=== PATIENT | female | born 1945 | race Caucasian/White ===

== ENCOUNTER → 2018-06-19 16:00 | Outpatient (CLI) | payer MEDICARE ==
[2018-06-19 17:38] LABS: T4 THYROXINE 9.4 ug/dL (4.7-13.3); THYROID STIMULATING HORMONE 1.67 uIU/mL (0.36-3.74)
== END | disposition home or self-care (01) ==
LOC: D.LABREF 16:00
PROVIDERS: Internal Medicine Cardiovascular Disease
DX: R63.5 Abnormal weight gain (principal); E03.9 Hypothyroidism, unspecified

== ENCOUNTER 2020-02-11 11:50 | Outpatient (CLI) | payer MEDICARE ==
[~2020-02-11] VITALS: Ht 162.6 cm; Wt 64.5 kg
--- NOTE | ~2020-02-11 | HEMODYNAMI ---
PATIENT:HARPREET REESE MEDICAL RECORD: [id number] : 47 LOCATION:[facility] ADMISSION DATE: 02/11/20 Generatedon:02/11/202014:10 Patient name: HARPREET REESE Patient #: [id number] SSN: [id number] : 1945 Date of study: 02/11/2020 Page: Of Hemodynamic Procedure Report Patient Data Patient Demographics Procedure consent was obtained First Name: HARPREET Gender: Female Last Name: HUGH : 1945 Patient #: [id number] Age: 74 year(s) Race: SSN: [id number] Ethnicity: or Additional ID: [id number] Contact details [address]: [address] [place] [address] State: [place] City: [place] Zip code: [address] Past Medical History Allergies Allergen Reaction Date Comments Reported Other allergy 02/11/2020 ibuprofen Admission Admission Data Admission Date: 02/11/2020 Admission Time: 11:50 Arrival Date: 02/11/2020 Arrival Time: 0:00 Admit Source: Other Insurance Payor: Medicare Height (in.): 63.78 BSA: 1.69 (m2) Height (cm.): 162 BMI: 24.58 (kg/m2) Weight (lbs.): 142.2 Weight (kg.): 64.5 Lab Results Lab Result Date: 02/11/2020 Lab Result Time: 0:00 CBC Name Units Result Min Max Hemoglobin g/dl 13.1 -*(----)-- 13.5 17.5 Procedure Procedure Types Cath Procedure Diagnostic Procedure C [facility] w/Coronaries Sedation Charges Moderate Sedation up to 15 minutes Procedure Description Procedure Date Procedure Date: 02/11/2020 Procedure Start Time: 13:47 Procedure End Time: 14:08 Procedure Staff Name Function Gerald Pedro MD Performing Physician Becki Fabian RT Monitor Sofia Harrison RN Nurse Mary Reynolds RT Scrub Procedure Data Cath Procedure Fluoroscopy Diagnostic fluoroscopy Total fluoroscopy Time: 1.9 time: 1.9 min min Diagnostic fluoroscopy Total fluoroscopy dose: 531 dose: 531 mGy mGy Contrast Material Contrast Material Type Amount (ml) Isovue 300 57 Entry Location Entry Primary Successful Side Size Upsize Upsize Entry Closure Michael ccessful Closure Location (Fr) 1 (Fr) 2 (Fr) Remarks Device Remarks Radial Right 6 Fr Mechanical artery Short Compression Estimated blood loss: 5 ml Diagnostic catheters Device Type Used For End Catheter Placement DIAGNOSTIC [place] 110cm 5 Procedure Fr catheter ([id number]) Procedure Complications No complications Procedure Medications Medication Administration Route Dosage 0.9% NaCl I.V. 100 ml/hr Oxygen etCO2 Nasal cannula 2 l/min Lidocaine 2% added to field 20 Heparin Flush Bag added to field 2 bags (1000units/500ml NS) Radial Cocktail added to field 1 syringe (Verapamil 2mg/Nitro 400mcg/Heparin 1500units) Versed I.V. 1 mg Fentanyl I.V. 25 mcg Hemodynamics Rest BSA: 1.69 (m2) HGB: 13.1 (g/dl) O2 Consumption: Estimated: 138.21 (ml/min) O2 Co nsumption indexed: Estimated:81.78 (ml/min/m) Heart Rate: 44 (bpm) Pressure Samples Time Site Value (mmHg) Purpose Heart Use Rate(bpm) 13:52 LV 102/-5,6 Snapshot 53 Gradients Valve Time Site Site Mean SEP/DFP Peak To Heart Use 1 2 (mmHg) (sec/min) Peak Rate (mmHg) (bpm) Aortic 13:53 LV AO 66 Snapshots Pre Cath Intra NCS Post Cath Vital Signs Time Heart Resp SPO2 etCO2 NIBP Rhythm Pain Sedation Rate (ipm) (%) (mmHg) (mmHg) Status Level (bpm) 13:40:05 43 12 100 36.5 115/56(89) SB 0 (11) 10(A) , No pain 13:44:23 43 12 99 28.3 97/52(80) SB 0 (11) 10(A) , No pain 13:48:31 43 11 99 38 90/54(73) SB 0 (11) 10(A) , No pain 13:52:39 53 13 99 41 106/53(90) SB 0 (11) 10(A) , No pain 13:56:50 46 12 98 35.8 111/56(86) SB 0 (11) 10(A) , No pain 14:01:05 48 6 100 40.3 126/57(98) SB 0 (11) 10(A) , No pain 14:05:23 44 15 100 14.9 129/61(80) SB 0 (11) 10(A) , No pain Medications Time Medication Route Dose Verified Delivered Reason Notes E ffectiveness by by 13:34:22 0.9% NaCl I.V. 100 Gerald Sofia used for ml/hr Willis Harrison senior actuarial analyst 13:34:29 Oxygen etCO2 2 l/min Gerald Sofia used for Nasal Willis Harrison procedure cannula RN 13:34:34 Lidocaine 2% added 20ml Greald Gerald for local to vial Willis Pedro MD anesthetic field 13:34:38 Heparin Flush added 2 bags Gerald Gerald used for Bag to Willis Pedro MD procedure (1000units/500ml field NS) 13:34:43 Radial Cocktail added 1 Gerald Gerald used for (Verapamil to syringe Willis Pedro MD procedure 2mg/Nitro field 400mcg/Heparin 1500units) 13:47:00 Fentanyl I.V. 25 mcg Gerald Sofia for Willis Harrison sedation RN 13:47:50 Versed I.V. 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 13:25:40 Becki Fabian RT(R) (CV) sent for patient. Start room use. 13:25:42 Time tracking: Regular hours (M-F 7:00 - 5:00) 13:25:48 Plan of Care:Hemodynamics will remain stable., Cardiac rhythm will remain stable., Comfort level will be maintained., Respiratory function will remain adequate., Patient/ family verbilizes understanding of procedure., Procedure tolerated without complication., Recovers from procedure without complications.. 13:25:53 Patient received from Pre/Post Procedure Room to CCL 1 Alert and oriented. Tansferred to table in Supine position. 13:25:55 Warm blankets applied, and naomi hugger turned on for patient comfort. 13:25:56 Correct patient and procedure confirmed by team. 13:25:57 ECG and BP/O2 sat monitors applied to patient. 13:26:14 H&P Date Dictated: 02/06/2020 Within 30 days and on chart., H&P Addendum completed by physician on day of procedure. (MUST COMPLETE FOR ALL OUTPATIENTS). 13:26:20 Family in patients room. 13:26:22 Patient NPO since Midnight. 13:26:36 Patient allergic to Other allergyibuprofen 13:26:39 Is the patient allergic to Iodine/contrast media? No. 13:26:41 Was the patient premedicated? Yes 13:26:47 Is patient on blood thinner?No 13:26:49 Patient diabetic? Yes. 13:26:51 If diabetic: On Metformin? Yes 13:26:59 If on Metformin: Last Dose? 02/08/2020 13:27:09 Previous problem with sedation/anesthesia? Yes bradycardia 13:27:12 Snore? Yes 13:27:13 Sleep apnea? No 13:27:18 Dentures? No ? 13:27:24 Patient pain scale 0/10 ?. 13:27:29 Lab results completed and on chart. 13:28:11 Stress Test: no; N/A ? 13:28:16 Right Radial & Right Groin area was prepped with chlora-prep and draped in sterile fashion 13:28:17 Alarms reviewed by R. N. 13:28:18 Sharps counted by scrub and verified by R.N. 13:28:19 Physician paged 13:34:06 Informed consent obtained and on chart 13:34:22 0.9% NaCl 100 ml/hr I.V. was administered by Sofia Harrison RN; used for procedure; Verbal order read back and verified. 13:34:29 Oxygen 2 l/min etCO2 Nasal cannula was administered by Sofia Harrison RN; used for procedure; Verbal order read back and verified. 13:34:34 Lidocaine 2% 20ml vial added to field was administered by Gerald Pedro MD; for local anesthetic; Verbal order read back and verified. 13:34:38 Heparin Flush Bag (1000units/500ml NS) 2 bags added to field was administered by Gerald Pedro MD; used for procedure; Verbal order read back and verified. 13:34:43 Radial Cocktail (Verapamil 2mg/Nitro 400mcg/Heparin 1500units) 1 syringe added to field was administered by Gerald Pedro MD; used for procedure; Verbal order read back and verified. 13:38:58 Vital chart was started 13:41:33 Zero performed for pressure channel P1 13:46:13 Physician arrived 13:46:14 --------ALL STOP TIME OUT------ 13:46:14 Final Timeout: patient, procedure, and site verified with staff and physician. All members of the team are in agreement. 13:46:17 Right Radial & Right Groin site verified by team. 13:46:26 Fire Safety Assessment: A--An alcohol-based skin anteseptic being used preoperatively., C--Open oxygen or nitrous oxide is being used., D--An ESU, laser, or fiber-optic light is being used. 13:46:30 Physical assessment completed. ASA score P 2 - A patient with mild systemic disease as per Gerald Pedor MD. 13:46:40 3b) 30-44 Moderately reduced kidney function. 13:46:46 Maximum allowable contrast dose (3.7 X eGFR X 0.75)116 ml. 13:46:51 Sedation plan: IV Moderate Sedation Medication:Versed, Fentanyl 13:46:55 Use device set Radial Dx or PCI 13:46:57 ACIST Syringe (27052) opened to sterile field. 13:46:58 Medline Cath Pack ([id number]) opened to sterile field. 13:46:58 Bag Decanter (2002) opened to sterile field. 13:46:59 ACIST Hand Control (24533) opened to sterile field. 13:47:00 Fentanyl 25 mcg I.V. was administered by Sofia Harrison RN; for sedation; Verbal order read back and verified. 13:47:00 ACIST Manifold (71015) opened to sterile field. 13:47:01 MBrace Wrist Support ([id number]) opened to sterile field. 13:47:02 NEEDLE Cook 21G 4cm Radial (K58652) opened to sterile field. 13:47:04 EMERALD Guide Wire (502-835) opened to sterile field. 13:47:04 SHEATH 6FR RAIN (8317021) opened to sterile field. 13:47:10 Procedure started. 13:47:11 Full Disclosure recording started 13:47:17 Local anesthetic to right radial artery with Lidocaine 2% by Gerald Pedro MD.INITIAL ACCESS ONLY 13:47:50 Versed 1 mg I.V. was administered by Sofia Harrison RN; for sedation; Verbal order read back and verified. 13:48:18 Baseline sample Acquired. 13:48:25 Rhythm: sinus rhythm 13:48:32 Pre-procedure instructions explained to patient. 13:48:32 Pre-op teaching completed and patient verbalized understanding. 13:48:41 Opens mouth fully? Yes 13:48:43 Sticks out tongue? Yes 13:48:49 Airway obstruction? No ? 13:48:58 Pre procedure: right dorsailis pedis pulse 2+ Normal; easily identifiable; not easily obliterated 13:49:16 IV patent on arrival in right antecubital with 0.9% NaCl at [facility]. 13:51:50 Risk of Mortality: 0.1 13:51:54 Risk of blood transfusion: 1.3 13:51:59 Risk of NINO: 0.3 13:52:16 A 6 Fr Short sheath was inserted into the Right Radial artery 13:52:24 A DIAGNOSTIC [place] 110cm 5 Fr catheter (015471) was advanced over the wire and used for Procedure. 13:52:32 LV gram done using SCHMID 13:52:38 Injector settings: Ml/sec: 5, Volume: 15, 13:53:16 EF : 60 % 13:53:36 LV hemodynamics recorded. 13:54:07 LCA angiography performed. 13:54:12 Injector settings: Ml/sec: 3, Volume: 6, 13:57:01 RCA angiography performed. 13:57:06 Injector settings: Ml/sec: 3, Volume: 6, 13:59:52 Catheter removed. 14:00:31 ZEPHYR REGULAR TR BAND (832222) opened to sterile field. 14:00:51 Sheath removed intact; hemostasis achieved with Mechanical Compression to the Right Radial artery. 14:01:45 Fluoroscopy time 01.90 minutes. 14:02:02 Flurop Dose total: 531 14:02:02 Fluoroscopy dose: 531 mGy 14:02:12 Dose Area Product 38143 mGy/cm. 14:02:19 Sharps counted by scrub and verified by R.N. 14:02:28 Post-procedure physical assessment completed. ASA score P 2 - A patient with mild systemic disease as per Gerald Pedro MD. 14:02:50 Post procedure rhythm: sinus bradycardia 14:03:42 Contrast amount:Isovue 300 57ml. 14:03:48 Procedure ended.(Physican Out) 14:03:55 Maximum allowable dose exceeded? No. 14:03:58 Quinter band inflated with 10cc of air. 14:04:06 Post right radial artery:stable 14:04:10 Estimated blood loss: 5 ml 14:04:12 Post procedure instruction explained to patient.Patient verbalizes understanding. 14:04:14 Patient needs reinforcement of post procedure teaching. 14:04:35 Procedure type changed to Cath procedure, Diagnostic procedure, C, [facility] w/Coronaries, Sedation Charges, Moderate Sedation up to 15 minutes 14:04:38 Procedure and supply charges have been captured, reviewed, submitted and are correct. 14:04:46 Procedure Complication : No complications 14:04:51 Vital chart was stopped 14:05:01 [facility] Findings: MVD- MD will discuss options w/ pt 14:05:05 Operative report dictated upon procedure completion. 14:05:06 See physician's report for complete and final results. 14:05:10 Report given to Pre/Post Procedure Room. 14:05:14 Patient transfered to Pre/Post Procedure Room with Stretcher. 14:08:44 Procedure ended. 14:08:44 Full Disclosure recording stopped 14:08:47 End room use (Document Last) Device Usage Item Name Manufacture Quantity Catalog Hospital Part Current Minima l Lot# / Number Charge Number Stock Stock Serial# Code ACIST Acist 1 52739 [id number] [id number] [id number] 20 Syringe Medical (24686) Systems Inc Medline Medline 1 [id number] 139796 41498 099930 5 Cath Pack ([id number]) Bag Microtek 1 237045 16407 767069 5 Decanter Medical Inc. () ACIST Hand Acist 1 54811 718076 415537 693566 5 Control Medical (74170) Systems Inc ACIST Acist 1 85334 079943 340374 109321 5 Manifold Medical (45051) Systems Inc MBrace Advanced 1 140-0250-00 988998 89096 701625 5 Wrist Vascular Support Dynamics ([id number]) NEEDLE [employer] Medical 1 [id number] 338603 862855 268656 5 21G 4cm Radial ([id number]) EMERALD Cardinal 1 502-699 074262 484787 079195 5 Guide Wire Health (986-584) SHEATH 6FR Cardinal 1 [id number] 777693 9358547 744404 5 [facility] (8726018) DIAGNOSTIC Terumo 1 40-9748 434245 783780 788788 5 [place] 110cm 5 Fr catheter (651238) ZEPHYR Cardinal 1 181515 052900 9051382 279988 5 REGULAR TR Health BAND (367168) Signature Audit Surprise Stage Time Signature Unsigned Intra-Procedure 02/11/2020 Becki 2:09:08 PM Rui RT(R) (CV) Intra-Procedure 02/11/2020 Sofia Harrison 2:09:38 PM RN Intra-Procedure 02/11/2020 Gerald Pedro MD 2:10:13 PM [facility] [address] [place] [address]
[2020-02-11] MEDS ORDERED: BAYER CHEWABLE81 MG PO (12:18)
[2020-02-11] MEDS ORDERED: ISOSORBIDE MONO60 M1 PO (12:18)
[2020-02-11] MEDS ORDERED: FUROSEMIDE20 MG PO (12:19)
[2020-02-11] MEDS ORDERED: OMEPRAZOLE20 M1 PO (12:19)
[2020-02-11] MEDS ORDERED: LIPITOR40 MG PO (12:19)
[2020-02-11] MEDS ORDERED: SYNTHROID75 MCG PO (12:19)
[2020-02-11] MEDS ORDERED: METOPROLOL TART50 MG PO (12:20)
[2020-02-11] MEDS ORDERED: PRINIVIL20 MG PO (12:20)
[2020-02-11] MEDS ORDERED: RANEXA500 MG PO (12:20)
[2020-02-11] MEDS ORDERED: NITROQUICK0.4 MG SL (12:21)
[2020-02-11] MEDS ORDERED: GLUCOPHAGE1000 MG PO (12:21)
[2020-02-11] MEDS ORDERED: ESTRACE 0.0142.5 GM VG (12:22)
[2020-02-11 12:29] VITALS: BP 128/64; Ht 162.6 cm; Wt 64.5 kg
[2020-02-11 12:58] LABS: BASOPHILS 0.6 % (0-2); EOSINOPHILS 0.8 % (0-7); HEMATOCRIT 41.7 % (36.0-48.0); HEMOGLOBIN 13.1 g/dL (12-16); IMMATURE GRANULOCYTES 0.2 % (0-5); LYMPHOCYTES 31.3 % (15-50); MCH 27.5 pg (26.0-34.0); MCHC 31.4 g/dL (31.0-37.0); MCV 87.4 fL (80.0-100.0); MEAN PLATELET VOLUME 11.4 fL (7.4-10.4); MONOCYTES 8.8 % (2-11); NEUTROPHILS 58.3 % (40-80); PLATELET COUNT 359 10x3/uL (130-400); RBC 4.77 10x6/uL (4.00-5.40); RDW 15.1 % (11.5-14.5); WBC 6.4 10x3/uL (4.8-10.8)
[2020-02-11 13:28] LABS: CALCIUM 9.5 mg/dL (8.5-10.1); CHOL - HDL RATIO 2.5 ratio (2.3-4.1); CREATININE - SERUM 1.3 mg/dL (0.6-1.3); LDL-HDL RATIO 1.2 ratio (1.5-3.5)
[2020-02-11 13:54] LABS: ANION GAP 10.3 mmol/L (8-16); POTASSIUM - SERUM 4.3 mmol/L (3.5-5.1)
--- NOTE | 2020-02-11 14:15 | NUR ---
PT REC'D TO ROOM 3 VIA STRETCHER FROM MANAGER TESTING. MONITORS ESTAB. AT BS. SEE THREAD PULLER - ALARMS ON AND C/L IN REACH.
--- NOTE | 2020-02-11 14:17 | NUR ---
DR. BROWN AT FOR CONSULT.
--- NOTE | 2020-02-11 14:30 | NUR ---
R WRIST Z BAND SITE C/D/I, NO S/S BLEEDING OR HEMATOMA. R ARM/HAND WARM WITH PALP PULSES AND BRISK CAP REFILL. CM - SB, VSS. ALARMS ON AND C/L IN REACH.
--- NOTE | 2020-02-11 14:50 | NUR ---
DR. GUERRA, ANESTHESIA, IN TO SEE PT.
--- NOTE | 2020-02-11 15:00 | NUR ---
R WRIST SITE C/D/I, NO S/S BLEEDING OR HEMATOMA. VSS. PT RESTING QUIETLY. R HAND WARM, PULSES PALP. ALARMS ON AND C/L IN REACH.
--- NOTE | 2020-02-11 15:15 | NUR ---
2CC AIR REMOVED FROM Z BAND, NO S/S BLEEDING OR HEMATOMA. PT ALERT - INSTRUCTED ON S/S TO REPORT. AT BS. ALARMS ON AND C/L IN REACH.
--- NOTE | 2020-02-11 15:24 | NUR ---
U/S TECH AT FOR CAROTID DOPPLERS.
--- NOTE | 2020-02-11 15:30 | NUR ---
TOTAL 5CC AIR REMOVED FROM Z BAND, NO S/S BLEEDING OR SWELLING. VSS. PT DENIES NEEDS. ALARMS ON AND C/L IN REACH. DOPPLER U/S IN PROCESS.
--- NOTE | 2020-02-11 15:45 | NUR ---
ALL AIR REMOVED FROM Z BAND, NO S/S BLEEDING OR HEMATOMA. HAND WARM WITH PULSES PALP. U/S STILL IN PROCESS. ALARMS ON AND C/L IN REACH.
--- NOTE | 2020-02-11 16:15 | NUR ---
Z BAND OFF, NO S/S BLEEDING - DSG APPLIED.. VSS. U/S IN PROCESS. PT RESTING QUIETLY, DENIES NEEDS.
--- NOTE | 2020-02-11 16:30 | NUR ---
U/S DONE. PIV D/C'D INTACT, DSG APPLIED.
--- NOTE | 2020-02-11 16:39 | NUR ---
ALL DISCHARGE INSTRUCTIONS REVIEWED WITH PT. INCLUDING MEDICATIONS (STOP LISINOPRIL 02/12 - PER DR BROWN), RESTRICTIONS AND PLAN FOR SURGERY MON.
--- NOTE | 2020-02-11 16:43 | NUR ---
EKG DONE PER PRE OP SURGERY ORDERS.
--- NOTE | 2020-02-11 16:46 | NUR ---
PT TO XRAY VIA WC.
--- NOTE | 2020-02-11 16:56 | NUR ---
PT BACK TO UNIT, TO BR AND DRESSED INDEPENDENTLY.
--- NOTE | 2020-02-11 17:00 | NUR ---
PT D/C'D VIA WC TO PRIVATE VEHICLE WITH ALL PAPER WORK AND BELONGINGS.
== END 2020-02-11 17:00 | disposition home or self-care (01) ==
LOC: D.CATH 11:50
PROVIDERS: ATTEND Internal Medicine Cardiovascular Disease
DX: I25.110 Atherosclerotic heart disease of native coronary artery with unstable angina pectoris (principal)

== ENCOUNTER 2020-02-12 15:34 | Inpatient (IN) | payer MEDICARE ==
[~2020-02-12] VITALS: Ht 162.6 cm; Wt 72.1 kg
[~2020-02-12 15:34] MED LIST: BAYER CHEWABLE81 MG PO; ESTRACE 0.0142.5 GM VG; FUROSEMIDE20 MG PO; GLUCOPHAGE1000 MG PO; ISOSORBIDE MONO60 M1 PO; LIPITOR40 MG PO; METOPROLOL TART50 MG PO; NITROQUICK0.4 MG SL; OMEPRAZOLE20 M1 PO; PRINIVIL20 MG PO; RANEXA500 MG PO; SYNTHROID75 MCG PO
[2020-02-13 08:34] LABS: APTT 23.1 SECONDS (22.8-39.4); INR 0.97 (0.85-1.17); PROTIME 12.8 SECONDS (11.6-15.0)
[2020-02-13 08:41] LABS: BILIRUBIN NEGATIVE (NEGATIVE); GLUCOSE NEGATIVE (NEGATIVE); KETONE NEGATIVE (NEGATIVE); NITRITE NEGATIVE (NEGATIVE); UROBILINOGEN NORMAL (NORMAL)
[2020-02-13 08:46] LABS: BACTERIA FEW /hpf (NEGATIVE); EPITHELIAL CELLS 0-5 /hpf (0-5); HYALINE CAST 0-5 /lpf (NONE SEEN); RED CELLS - URINE RARE /hpf (0-5)
[2020-02-13 08:49] LABS: PHOSPHOROUS 3.9 mg/dL (2.5-4.9); T4 THYROXIN - FREE 1.44 ng/dL (0.76-1.46); THYROID STIMULATING HORMONE 2.41 uIU/mL (0.36-3.74); URIC ACID 5.6 mg/dL (2.6-7.2)
[2020-02-16] VITALS (51 sets, daily range): BP systolic 108–166; BP diastolic 38–81; BMI 23.9; BMI 25.4
--- NOTE | 2020-02-16 06:32 | NUR ---
0630-OR [employer] ARCHITECT TO NOTIFY DR. BROWN OF VARIANCE IN SYSTOLIC BLOOD PRESSURE.
[2020-02-16 12:35] LABS: BASOPHILS 0.2 % (0-2); EOSINOPHILS 0.6 % (0-7); HEMATOCRIT 23.4 % (36.0-48.0); IMMATURE GRANULOCYTES 0.2 % (0-5); LYMPHOCYTES 24.7 % (15-50); MCHC 31.6 g/dL (31.0-37.0); MCV 85.4 fL (80.0-100.0); MEAN PLATELET VOLUME 10.4 fL (7.4-10.4); MONOCYTES 5.1 % (2-11); NEUTROPHILS 69.2 % (40-80); RBC 2.74 10x6/uL (4.00-5.40); RDW 15.1 % (11.5-14.5); WBC 6.5 10x3/uL (4.8-10.8)
[2020-02-16 12:38] LABS: HEMOGLOBIN 7.4 g/dL (12-16); PLATELET COUNT 188 10x3/uL (130-400)
[2020-02-16 12:45] LABS: APTT 31.2 SECONDS (22.8-39.4); INR 1.59 (0.85-1.17); PROTIME 18.8 SECONDS (11.6-15.0)
--- NOTE | 2020-02-16 13:40 | NUR ---
PT ARRIVED TO UNIT AROUND 1333 VIA BED. ON VENT ETT 7.5 23 AT LIP. HAS RIJ WITH PLASMOLYTE AT 100ML/HR. MIDSTERNAL INCISION WITH DRESSING C/D/I. SUBSTERNAL DRESSING IN PLACE. CT X 2 Y'D TOGETHER. NO AIR LEAK NOTED. TO 20 CM SUCTION. MUNA DRAIN IN PLACE. SANDRA LE HARVEST. BERNA DRAIN TO LLE. RIGHT RADIAL BHAVANA IN PLACE. SAWYER CATHETER IN PLACE WITH CLEAR YELLOW URINE. WRIST RESTRAINTS APPLIED UPON ARRIVAL. TPM R-80 AMA 20 SENSITIVY 0.5. SAFETY MEASURES IN PLACE. NURSE AT BEDSIDE FOR CLOSE MONITORING. WILL CONTINUE TO MONITOR.
--- NOTE | 2020-02-16 16:15 | NUR ---
PT RESTING COMFORTABLY. OPENING EYES AND FOLLOWING SIMPLE COMMANDS. ON CPAP TRIAL AT THIS TIME. WILL CONTINUE TO MONITOR CLOSELY.
--- NOTE | 2020-02-16 16:45 | NUR ---
ABG RESULTS REPORTED TO DR. BROWN. HEATHER TO EXTUBATE.
--- NOTE | 2020-02-16 16:52 | NUR ---
PT EXTUBATED AT THIS TIME. PLACED ON 4L O2 VIA NC. SPOUSE AT BEDSIDE. WRIST RESTRAINTS DC'D. WILL CONTINUE TO MONITOR.
[2020-02-16 17:08] LABS: INR 1.19 (0.85-1.17)
--- NOTE | 2020-02-16 18:30 | NUR ---
O2 SAT 100% ON 3L. DECREASED OXYGEN TO 2L VIA NC. PULLED UP AND REPOSITIONED FOR COMFORT.
[2020-02-17] VITALS (67 sets, daily range): BP systolic 104–159; BP diastolic 43–68; Ht 162.6 cm; Wt 72.1 kg
--- NOTE | 2020-02-17 04:30 | NUR ---
PT DANGLED ON SIDE OF BED, TOLERATED WELL. 20ML DRAINAGED NOTED TO CHEST TUBES. PT BACK IN BED. WILL CONTINUE TO OBSERVE.
[2020-02-17 05:58] LABS: HEMOGLOBIN 8.8 g/dL (12-16); MCHC 31.3 g/dL (31.0-37.0); MCV 86.2 fL (80.0-100.0); MEAN PLATELET VOLUME 10.7 fL (7.4-10.4); RBC 3.26 10x6/uL (4.00-5.40); RDW 15.4 % (11.5-14.5)
[2020-02-17 06:15] LABS: ALBUMIN 2.9 g/dL (3.4-5.0); ANION GAP 12.5 mmol/L (8-16); BILIRUBIN - TOTAL 0.27 mg/dL (0.2-1.3); CALCIUM 7.1 mg/dL (8.5-10.1); CARBON DIOXIDE 24.9 mmol/L (21.0-32.0); CREATININE - SERUM 1.1 mg/dL (0.6-1.3); POTASSIUM - SERUM 3.4 mmol/L (3.5-5.1); PROTEIN - SERUM 5.3 g/dL (6.4-8.2)
[2020-02-17 06:29] LABS: HEMATOCRIT 28.1 % (36.0-48.0); WBC 8.7 10x3/uL (4.8-10.8)
--- NOTE | 2020-02-17 07:51 | NUR ---
PT BEGAN HAVING TREMOR LIKE SHAKING TO CHEST SHOULDER SHORTLY AFTER START OF CLEVIPREX, TITRATED TO 3MG/HR. MEDICATION TITRATED DOWN, BLOOD SUGAR CHECKED AND 176. TEMPERATURE 99.5 SAWYER. SHAKING CONTINUE OFF AND ON FOR 20 MIN. PT NOT IN DISTRESS AND ABLE TO SLEEP. DR. BROWN AWARE. B/P BEGAN TO REDUCE AFTER AND BEGAN TITRATEING DOWN NITRO.
--- NOTE | 2020-02-17 07:54 | NUR ---
RIGHT JÚNIOR BATEMAN DC'Fernando PER ORDER.
--- NOTE | 2020-02-17 07:57 | OP ---
PATIENT NAME: HARPREET REESE MEDICAL RECORD: [id number] :47 LOCATION:D.[facility] D.CV02 ADMISSION DATE:02/16/20 SURGEON: FRANKO BROWN MD DATE OF OPERATION: 02/16/2020 SURGEON: Franko Brown MD PROCEDURE PERFORMED: Coronary artery bypass graft times 3 (left internal mammary artery to LAD, reverse saphenous vein graft from aorta to first obtuse marginal, aorta to posterior descending artery). PREOPERATIVE DIAGNOSES: Coronary artery disease with history of multiple stents, unstable angina symptoms. POSTOPERATIVE DIAGNOSES: Coronary artery disease with history of multiple stents, unstable angina symptoms. ANESTHESIA: General endotracheal anesthesia. ESTIMATED BLOOD LOSS: Total cardiopulmonary bypass with Cell Saver retransfusion. COMPLICATIONS: None. SPECIMENS: None. CONDITION: Stable. DISPOSITION: To CV ICU. OPERATIVE FINDINGS: 1. Right greater than left brachial blood pressure about 20 mm, but good flow in the left internal mammary artery. 2. Trace mitral regurgitation by transesophageal echocardiography unchanged after coronary artery bypass graft, normal left ventricular size with good contractility. 3. Thin walled greater saphenous vein from the right leg with multiple thin spots except for 2 inches of vein at the upper thigh where it essentially trifurcated, this was not usable for bypass. 4. Bridging greater saphenous vein harvest from the left thigh to mid thigh where again the vein trifurcated relatively thin walled segment in the proximal portion of the obtuse marginal graft. 5. Good quality left internal mammary artery, the LAD was 1.75 mm vessel with diffuse disease. Good Doppler signal after anastomosis and after reversal of heparin. 6. First obtuse marginal was a largest vessel in the lateral wall. It was severely calcified up to the intramyocardial portion where it was a 2.5 mm vessel. The more distal obtuse marginal was small. 7. Posterior descending artery 1.5 mm. 8. Second diagonal calcified 4-5 inches beyond the bifurcation from the LAD and not amenable for bypass. OPERATIVE INDICATION: Unstable angina, history of coronary stents with restenosis and progressive coronary artery disease, 3 vessels. OPERATIVE REPORT [id number] HARPREET REESE OPERATIVE PROCEDURE IN DETAIL: The patient was brought to the operating suite. General anesthesia was obtained, the patient was prepped and draped. Greater saphenous vein was harvested from right leg utilizing endoscopic technique. Side branch divided with electrocautery. Vessel was ligated proximally and distally and removed, thin sites were oversewn. The vein was small and thin walled. Bridging incision made in the left leg. Side branches divided with clips. Vessel ligated proximally and distally and removed and made ready for anastomosis by oversewing the thin sites. Leg was closed after drain placement in 2 layers and Dermabond was placed. Median sternotomy incision was made. Subcutaneous tissue divided with electrocautery. Sternum was divided with a saw. The left hemisternum was elevated. Left pleural cavity was entered. Left internal mammary and veins were taken down as a pedicle graft. Sternal retractor was placed. Pericardium was opened. Heparin was given. Aorta was cannulated. Dual stage venous cannula was inserted. The internal mammary was clipped distally and the flow was excellent. It was made ready for anastomosis. Activated clotting time was appropriately elevated. The patient was placed on cardiopulmonary bypass. Sites for distal anastomoses were selected. Antegrade cardioplegic cannula was inserted. The patient's temperature had drifted downward. Crossclamp was placed. Cardioplegia given antegrade and this was repeated at 20-minute intervals including down the completed vein grafts. Distal anastomosis was performed in standard technique. Proximal anastomosis 7-0 thin walled, obtuse marginal 6-0 in the right, also a 3.5 punch on the obtuse marginal graft. Root de-aired, anastomosis tied down. Flow restored, proximal and distal anastomotic sites inspected for bleeding. The patient resumed spontaneous rhythm. Atrial and ventricular pacing wires were placed. Atrial pacing was performed due to preoperative bradycardia. The patient was decannulated. Protamine was given. The graft lay appropriately. Thorough irrigation was undertaken. Hemostasis was assured. A drain was placed in the mediastinum and left pleural cavity. Pericardium was loosely reapproximated over the great vessels. Left chest was evacuated and irrigated. The internal mammary harvest site inspected for bleeding. The patient had moderate osteopenia, so a weave wire was used bilaterally with stable chest closure. Fascia was closed. Subcutaneous tissue was closed. Skin was closed. Dermabond was placed. The needle and sponge counts were reported as correct and the patient was taken to the ICU in stable condition. TRANSINT:[id number] Voice Confirmation ID: [id number] DOCUMENT ID: [id number] FRANKO BROWN MD at 0757 CC: HEIDE JIMÉNEZ M.D. and MEKHI GAGNON [id number] DICTATION DATE: 02/16/20 1508 PLATE FITTER: 02/16/20 2339 ADM IN [place] [id number] [place] [id number]
--- NOTE | 2020-02-17 09:10 | NUR ---
SUBSTERNAL DRESSING CHANGED PER ORDER. TPM WIRES COILED AND SECURED. PLASMOLYTE DC'D PER ORDERS. WILL CONTINUE TO MONITOR.
--- NOTE | 2020-02-17 15:17 | NUR ---
STOOD UP ON SIDE OF CHAIR WITH PHYSICAL THERAPY. RATES PAIN 8/10 AT INCISION SITE. PERCOCET GIVEN FOR PAIN. NO FURTHER NEEDS AT THIS TIME. WILL CONTINUE TO MONITOR.
--- NOTE | 2020-02-17 16:14 | NUR ---
RESTING IN CHAIR. SPOUSE AT BEDSIDE. RATES PAIN 7/10 BREAK THROUGH PAIN AT INCISION SITE. NO FURTHER NEEDS AT THIS TIME.
--- NOTE | 2020-02-17 20:00 | NUR ---
BERNA DRAIN D/C'D FROM LEFT LEG, PT TOLERATED WELL, NO C/O
--- NOTE | 2020-02-17 21:30 | NUR ---
PT RETURNED TO BED, STOOD AND TRANSFERRED WELL WITH MINIMAL ASSIST, VITALS STABLE
[2020-02-18] VITALS (24 sets, daily range): BP systolic 92–122; BP diastolic 41–56
--- NOTE | 2020-02-18 | NUR ---
PT SLEEPING WITH NO DISTRESS, VITALS STABLE
[2020-02-18 06:14] LABS: ALBUMIN 2.6 g/dL (3.4-5.0); ANION GAP 10.7 mmol/L (8-16); BILIRUBIN - TOTAL 0.24 mg/dL (0.2-1.3); CALCIUM 7.6 mg/dL (8.5-10.1); CARBON DIOXIDE 26.9 mmol/L (21.0-32.0); CREATININE - SERUM 0.9 mg/dL (0.6-1.3); POTASSIUM - SERUM 3.6 mmol/L (3.5-5.1); PROTEIN - SERUM 5.3 g/dL (6.4-8.2)
[2020-02-18 06:24] LABS: HEMATOCRIT 24.4 % (36.0-48.0); HEMOGLOBIN 7.7 g/dL (12-16); MCH 27.1 pg (26.0-34.0); MCHC 31.6 g/dL (31.0-37.0); MCV 85.9 fL (80.0-100.0); MEAN PLATELET VOLUME 10.8 fL (7.4-10.4); RBC 2.84 10x6/uL (4.00-5.40); RDW 15.9 % (11.5-14.5); WBC 10.5 10x3/uL (4.8-10.8)
--- NOTE | 2020-02-18 08:00 | NUR ---
DR BROWN IN THE UNIT. DR BROWN PULLED CT'S. MUNA DRAIN REMAINS. DRESSING CHANGED COMPLETED. SITE LOOKS C/D/I. PT TOLERATED WELL.
--- NOTE | 2020-02-18 08:55 | NUR ---
AM MEDS GIVEN WITH NO ISSUES. PT PULLING ABOUT 500 ON HER IS. INSTRUCTED TO SPLINT CHEST WITH HEART PILLOW AND TO COUGH. WEAK COUGH NOTED. INSTRUCTED TO TCDB AND TO USE IS 10X'S/H. VSS AT THIS TIME. CALL LIGHT IN REACH. WILL CONT POC.
--- NOTE | 2020-02-18 09:43 | NUR ---
PT WORKING WITH PHYSICAL THERAPY. SEE PT NOTES. VSS. WILL CONT POC.
--- NOTE | 2020-02-18 10:33 | NUR ---
Nutrition Follow-up: POD 2 CABG. Working with PT this AM. Diet: Diabetic PO intake: 0% breakfast, 30% lunch yesterday Wt: 152.1# (02/17); 147.7# (02/15) Last BM: 02/14 Labs noted: Glu 99, Ca 7.6, Alb 2.6 Meds noted: Humulin, Glucophage, Protonix, Colace -Encourage PO intake and honor food preferences within diet restrictions. -Offer Glucerna with meals. -Monitor wt. -RD following.
--- NOTE | 2020-02-18 11:12 | NUR ---
DR HOLLINS AT THE PTS BEDSIDE.
--- NOTE | 2020-02-18 14:00 | NUR ---
SLEEPING IN CHAIR. RESP DEEP AND REGULAR NO DISTRESS
--- NOTE | 2020-02-18 14:29 | NUR ---
AMBULATED IN PARK PER PHYSICAL THERAPY. TOLERATED FAIR.
--- NOTE | 2020-02-18 15:30 | NUR ---
NAPPING IN CHAIR. NO DISTRESS. RESP DEEP AND REGULAR
--- NOTE | 2020-02-18 16:59 | NUR ---
DINNER TRAY SERVED. PO MEDS TAKEN WITHOUT DIFFICULTY. FAMILY AT BEDSIDE UPDATE GIVEN
--- NOTE | 2020-02-18 19:00 | NUR ---
AOX4, VSS. UNLABORED RESPIRATIONS, LUNG SOUNDS CLEAR/DIMINISHED. COUGH/DB WITH GOOD EFFORT. REACHING 500-1000 ON I/S. S1S2 HEARD, PERIPHERAL PULSES PRESENT. BOWEL SOUNDS ACTIVE X4. SAWYER CATH INTACT WITH DEANN URINE TO BEDSIDE DRAINAGE. L SUBSTERNAL MUNA INTACT AND COMPRESSED. CHEST DRESSINGS CDI. PT DENIES NEEDS AT THIS TIME. CALL LIGHT WITHIN PT REACH. CPOC.
--- NOTE | 2020-02-18 21:00 | NUR ---
PT UP IN CHAIR, BED LINENS CHANGED. AMBULATES TO BED WITH ASSISTANCE, TOLERATES WELL. PROMINENCES BRIDGED. FRESH WATER TO BEDSIDE. CALL LIGHT AND BEDSIDE TABLE WITHIN PT REACH. CPOC.
--- NOTE | 2020-02-18 23:00 | NUR ---
REASSESSMENT COMPLETE, NO NEW CHANGES AT THIS TIME. REACHING 500-1000 ON I/S X10. REPOSITIONED WITH PROMINENCES BRIDGED. VSS, NO C/O PAIN AT THIS TIME. CALL LIGHT AND BEDSIDE TABLE WITHIN PT REACH. CPOC.
[2020-02-19] VITALS (24 sets, daily range): BP systolic 88–125; BP diastolic 42–63
--- NOTE | 2020-02-19 03:00 | NUR ---
REASSESSMENT COMPLETE, NO NEW CHANGES AT THIS TIME. PT REPOSITIONED FOR COMFORT. COUGH/DB WITH GOOD EFFORT, REACHING 500 ON I/S X10. VSS, DENIES NEEDS. CALL LIGHT WITHIN PT REACH. CPOC.
--- NOTE | 2020-02-19 05:45 | NUR ---
UP TO CHAIR AT THIS TIME, TOLERATES WELL. VSS. DENIES NEEDS.
[2020-02-19 05:47] LABS: BASOPHILS 0.1 % (0-2); EOSINOPHILS 0.1 % (0-7); HEMATOCRIT 21.2 % (36.0-48.0); IMMATURE GRANULOCYTES 0.1 % (0-5); LYMPHOCYTES 17.8 % (15-50); MCH 27.1 pg (26.0-34.0); MCHC 31.6 g/dL (31.0-37.0); MCV 85.8 fL (80.0-100.0); MEAN PLATELET VOLUME 10.4 fL (7.4-10.4); MONOCYTES 9.1 % (2-11); NEUTROPHILS 72.8 % (40-80); PLATELET COUNT 184 10x3/uL (130-400); RBC 2.47 10x6/uL (4.00-5.40); RDW 15.8 % (11.5-14.5)
[2020-02-19 05:59] LABS: WBC 6.9 10x3/uL (4.8-10.8)
[2020-02-19 06:01] LABS: HEMOGLOBIN 6.7 g/dL (12-16)
--- NOTE | 2020-02-19 06:07 | NUR ---
KEVIN NOTIFIED OF CRITICAL LAB VALUE, NO NEW ORDERS AT THIS TIME.
[2020-02-19 06:19] LABS: ALBUMIN 2.2 g/dL (3.4-5.0); ANION GAP 7.2 mmol/L (8-16); BILIRUBIN - TOTAL 0.24 mg/dL (0.2-1.3); CALCIUM 7.6 mg/dL (8.5-10.1); CARBON DIOXIDE 27.6 mmol/L (21.0-32.0); CREATININE - SERUM 0.8 mg/dL (0.6-1.3); MAGNESIUM - SERUM 2.4 mg/dL (1.8-2.4); POTASSIUM - SERUM 3.8 mmol/L (3.5-5.1); PROTEIN - SERUM 4.9 g/dL (6.4-8.2)
--- NOTE | 2020-02-19 07:33 | NUR ---
SHIFT REPORT RECEIVED. AA&OX4. SITTING UP IN CHAIR. RATES PAIN 4/10 AT INCISION SITE. ON 2L O2 VIA NC. HAD RIJ CVL SALINE LOCKED. MIDSTERNAL DRESSING IN PLACE. SUBTERNAL DRESSING C/D/I WITH TPM WIRES COILED AND MUNA DRAIN IN PLACE. SANDRA LOWER EXTREMITY HARVEST. DRESSING TO LLE CDI. SAWYER CATHETER IN PLACE WITH CLEAR YELLOW URINE NOTED. PULLS 500 ON I.S. CALL LIGHT IN REACH. NO FURTHER NEEDS AT THIS TIME. WILL CONTINUE TO MONITOR.
--- NOTE | 2020-02-19 10:06 | NUR ---
UNIT OF PRBC'S INITIATED AT 1000. PT RESTING COMFORTABLY IN CHAIR. WILL CONTINU TO MONITOR.
[2020-02-19 13:43] LABS: HEMATOCRIT 28.2 % (36.0-48.0); HEMOGLOBIN 9.1 g/dL (12-16)
--- NOTE | 2020-02-19 15:03 | NUR ---
RESTING COMFORTABLY. BATH GIVEN WITH MINIMAL ASSIST. DENIES FURTHER NEEDS. WILL CONTINUE TO MONITOR.
--- NOTE | 2020-02-19 16:29 | NUR ---
PT REPORT PAIN 10/10 TO BACK ON LEFT SIDE WHEN SHE TAKES DEEP BREATHS. STOOD UP AT SIDE OF CHAIR TO SEE IF IT WOULD HELP RELIEVE PAIN. CONTINUE TO REPORT PAIN. WILL CONTINUE TO MONITOR.
--- NOTE | 2020-02-19 19:00 | NUR ---
SHIFT ASSESSMENT COMPLETED. PT CARE ASSUMED, MONITORS ON AND WORKING, VSS, PT AWAKE AND ALERT, MONITORS ON AND WORKING, VSS. CALL LIGHT WITHIN REACH, WILL CONTINUE TO OBSERVE.
--- NOTE | 2020-02-19 19:05 | NUR ---
ASSISTED BACK TO BED. RESTING COMFORTABLY. DENIES FURTHER NEEDS.
--- NOTE | 2020-02-19 21:00 | NUR ---
PT LYING IN BED RESTING, MONITORS ON AND WORKING, VSS. CALL LIGHT WITHIN REACH, WILL CONTINUE TO OBSERVFE.
--- NOTE | 2020-02-19 23:00 | NUR ---
NO CHANGES, SEE FLOW SHEET FOR FURTHER DETAILS. WILL CONTINUE TO OBSERVE.
[2020-02-20] VITALS (21 sets, daily range): BP systolic 83–141; BP diastolic 51–68
--- NOTE | 2020-02-20 01:00 | NUR ---
PT RESTING, MONITORS ON AND WORKING, VSS, CALL LIGHT WITHIN REACH, WILL CONTINUE TO OBSERVE.
--- NOTE | 2020-02-20 03:00 | NUR ---
PT SITTING UP IN BED, PT AWAKE AND ALERT, MONITORS ON AND WORKING, CALL LIGHT WITHIN REACH, SEE FLOW SHEET FOR FURTHER DETAILS, WILL CONTINUE TO OBSERVE.
--- NOTE | 2020-02-20 05:00 | NUR ---
DRESSING CHANGED, CENTRAL LINE DRESSING CHANGED, CHG BATH GIVEN AND PT ASSISTED INTO CHAIR AT BEDSIDE, MONITORS ON AND WORKING. PT TOLERATED WELL. CALL LIGHT WITHIN REACH, WILL CONTINUE TO OBSERVE.
[2020-02-20 06:35] LABS: ALBUMIN 2.3 g/dL (3.4-5.0); ANION GAP 11.6 mmol/L (8-16); BILIRUBIN - TOTAL 0.32 mg/dL (0.2-1.3); CALCIUM 7.8 mg/dL (8.5-10.1); CARBON DIOXIDE 27.2 mmol/L (21.0-32.0); CREATININE - SERUM 0.9 mg/dL (0.6-1.3); MAGNESIUM - SERUM 2.2 mg/dL (1.8-2.4); PHOSPHOROUS 2.1 mg/dL (2.5-4.9); POTASSIUM - SERUM 3.8 mmol/L (3.5-5.1); PROTEIN - SERUM 5.4 g/dL (6.4-8.2)
[2020-02-20 07:58] LABS: BASOPHILS 0.3 % (0-2); HEMATOCRIT 25.4 % (36.0-48.0); HEMOGLOBIN 8.2 g/dL (12-16); IMMATURE GRANULOCYTES 0.3 % (0-5); LYMPHOCYTES 20.5 % (15-50); MCH 27.1 pg (26.0-34.0); MCHC 32.3 g/dL (31.0-37.0); MEAN PLATELET VOLUME 10.7 fL (7.4-10.4); MONOCYTES 9.4 % (2-11); NEUTROPHILS 68.5 % (40-80); PLATELET COUNT 154 10x3/uL (130-400); RDW 16.2 % (11.5-14.5); WBC 7.1 10x3/uL (4.8-10.8)
[2020-02-20 07:59] LABS: MCV 83.8 fL (80.0-100.0); RBC 3.03 10x6/uL (4.00-5.40)
--- NOTE | 2020-02-20 09:18 | NUR ---
PT AMB WITH PT.
--- NOTE | 2020-02-20 10:22 | NUR ---
Nutrition Follow-up: POD 4 CABG. Pt reports good appetite. Drinking [employer] Protein Shakes from home. Denies N/V, chewing/swallowing difficulties. -BM. +flatus. Diet: Diabetic PO intake: 50-75% WT: 152# (02/19); 152.1# (02/17); 147.7# (02/15) Labs noted: Glu 127, Ca 7.8, PO4 2.1, Alb 2.3 Meds noted: Micro K, Humulin, Glucophage, Protonix, Colace -Encourage PO intake and honor food preferences within diet restrictions. -Monitor wt. -RD following.
[2020-02-20] MEDS ORDERED: LOPRESSOR25 MG PO (13:49)
[2020-02-20] MEDS ORDERED: ASPIRIN EC81 M1 PO (13:51)
[2020-02-20] MEDS ORDERED: COLACE100 MG PO (13:53)
--- NOTE | 2020-02-20 13:56 | NUR ---
PT AMB WITH PT. DR BROWN HERE ON ROUNDS.
[2020-02-20] MEDS ORDERED: PERCOCET 5-3251 TAB PO (14:05)
--- NOTE | 2020-02-20 14:32 | NUR ---
PT BACK TO BED AFTER WALK WITH PT. MUNA DRAIN AND PM WIRES PULLED BY DR BROWN. DSNG APPLIED ORDERED. PT REMEDIOS WELL. PO PAIN MED GIVEN PRIOR TO.
--- NOTE | 2020-02-20 18:55 | NUR ---
RECIVED BEDSIDE SHIFT RERPORT AT BEDSIDE. PT IS A&OX4 SITTING UP IN CHAIR. VSS. SHE JUST RECIVED A PAIN PILL"ALITTLE WHILE AGO". SHE STATES"MY PAIN IS GETTING BETTER, I REALLY HAVE TO STAY ON TOP OF MY PAIN PILL SCHEUDLE OR I START HURTING REALLY BAD QUICKLY". I VOICED RECOGNITION THAT I WILL KEEP HER ON A SCHEDULE TO KEEP PAIN UNDERCONTROL. NO OTHER NEEDS OR C/O ARE VOICED AT THIS TIME. ASSESSMENT DONE AND WILL DOC IN [facility]. CHAIR IS LOCKED. SHE IS ORIENTED TO HER CALL LIGHT AND VOICES"I WILL NOT GET UP BY MYSELF, I WILL CALL YOU WHEN I AM READY". WILL CONTINUE TO MONITOR
--- NOTE | 2020-02-20 19:44 | NUR ---
JUST ASSISTED PT TO BR BY HOLDING HAND AND SHE VOIDED MODERATE AMOUNT OF YELLOW URINE FOR THE FIRST TIME SINCE SAWYER CATHETOR WAS TAKEN OUT. BACK TO BED SAFELTY. CHANGED LEFT UPPER LEG HARVEST SITE DRESSSING DUE TO DRAINAGE OF SMALL AMOUNT SEROSANGUNOUS DRAINAGE. SITE LOOKS FREE OF REDNESS OR SWELLING AND IS INTACT. CLEANED WITH NS AND APPLIED 4X4 GAUZE WITH TEGADERM. PT TOLERATED WELL WITH NO C/O. HER VSS. PROVIDED WARM BLANKET IN BED AND SHE POSITIONED HERSELF FOR COMFORT. BED WAS LEFT LOW,SIDE RAISLX2,CALL LIGHT WITHIN REACH. WILL CONITNUE TO MONITOR
--- NOTE | 2020-02-20 20:45 | NUR ---
PT IS RESTING IN BED. JUST SCANNED AND ADMINISTERED SCHEDULED MEDS. PT VOICES"YES MY PAIN IS GOOD RIGHT NOW". HER VSS. NO NEEDS VOICED. BED IS LOW,SIDE RAISLX2,CALL LIGHT WITHIN REACH. WILL CONITNUE TO MONITOR
--- NOTE | 2020-02-20 22:50 | NUR ---
PT IS RESTING IN BED WATCHING TV A&OX4. SHE VOICES PAIN "6/10 INBETWEEN MY SHOULDER BLADES AND MY INCISOIN". WILL SCAN AND ADMINSITER PAIN MEDS ORDERED PRN. VSS. ASSISTED X1 TO THE BR AND BACK TO BED SAFELY. PT VOIDED SMALL AMOUNT OF YELLOW URINE. SHE REPOSOTIONS HERSELF IN BED. BED WAS LEFT LOW,SIDE RIASLX2,CALL LIGHT WITHIN REACH. WILL CONINTUE TO MONITOR
[2020-02-21] VITALS (25 sets, daily range): BP systolic 107–146; BP diastolic 48–108
--- NOTE | 2020-02-21 00:37 | NUR ---
PT IS RESTING IN BED WITH EYES CLOSED. VSS. BED IS LOW,SIDE RAISLX2,CALL LIGHT WTIHIN REACH. WILL CONITNUE TO MONITOR
--- NOTE | 2020-02-21 02:40 | NUR ---
pt used call light and asked "can i get a pain pill and i also need help to the BR". ASSISTED PT TO BR THERE AND BACK SAFELY. SHE VOIDED LARGE AMOUNT YELLOW URINE. VS REMAINED STABLE. SCANNED AND ADMINISTERED PAIN MED PER ORDER PRN IN OCT. STATES PAIN IS "7/10 NUMERIC SCALE, MY CHEST FEELS SO TIGHT ESPECIALLY WHEN I LAY STILL FOR SO LONG". PROVIDED WITH NEW WATER PER REQUEST. NO OTHER NEEDS VOICED. RE-ASSESSMENT DONE AT THIS TIME AND WILL DOC IN FLOW SHEET. BED IS LOW,SIDE RAISLX2,CALL LIGHT WITHIN REACH. WILL CONITNUE TO MONITOR
--- NOTE | 2020-02-21 04:52 | NUR ---
XRAY IS HERE AT THIS TIME TAKING PT TO XRAY ROOM VIA WHEELCHAIR IN STABLE CONDITION.
--- NOTE | 2020-02-21 05:00 | NUR ---
PT BACK FROM XRAY IN STABLE CONDITION AND SAFELY BACK TO BED. VSS. NO NEEDS OR C/O VOICED. BED IS LOW,SIDE RAISLX2,CALL LIGHT WITHIN REACH. WILL CONINTUE TO MONITOR
[2020-02-21 05:45] LABS: HEMATOCRIT 26.1 % (36.0-48.0); HEMOGLOBIN 8.5 g/dL (12-16); LYMPHOCYTES 31.5 % (15-50); MCH 27.5 pg (26.0-34.0); MCHC 32.6 g/dL (31.0-37.0); MCV 84.5 fL (80.0-100.0); MEAN PLATELET VOLUME 9.9 fL (7.4-10.4); NEUTROPHILS 57.1 % (40-80); PLATELET COUNT 242 10x3/uL (130-400); RBC 3.09 10x6/uL (4.00-5.40); RDW 15.8 % (11.5-14.5); WBC 6.2 10x3/uL (4.8-10.8)
[2020-02-21 05:59] LABS: ALBUMIN 2.3 g/dL (3.4-5.0); ANION GAP 8.4 mmol/L (8-16); BILIRUBIN - TOTAL 0.41 mg/dL (0.2-1.3); CALCIUM 7.7 mg/dL (8.5-10.1); CARBON DIOXIDE 29.5 mmol/L (21.0-32.0); CREATININE - SERUM 0.9 mg/dL (0.6-1.3); MAGNESIUM - SERUM 1.9 mg/dL (1.8-2.4); PHOSPHOROUS 2.2 mg/dL (2.5-4.9); POTASSIUM - SERUM 3.9 mmol/L (3.5-5.1); PROTEIN - SERUM 5.4 g/dL (6.4-8.2)
--- NOTE | 2020-02-21 06:19 | NUR ---
assisted pt up to chair for morning. she is a&ox4, VSS. changed bed sheets while sitting up for day. she is positioned for comfort in chair. chair legs are locked. call light is at side. no needs voiced. will conitnue to monitor
--- NOTE | 2020-02-21 08:15 | NUR ---
PT UP IN CHAIR, ASST TO BATHROOM. PT VOIDS AND ASST TO CHAIR FOR AM MEAL. PO PAIN MED GIVEN.
--- NOTE | 2020-02-21 13:03 | NUR ---
ASST TO BATHROOM. PO PAIN MED GIVEN REQUESTED BY PT. ENCOURAGED I.S.
--- NOTE | 2020-02-21 15:41 | NUR ---
CVL DCD ORDERED BY DR BROWN. DSNG APPLIED. PT REMEDIOS WELL.
--- NOTE | 2020-02-21 17:26 | NUR ---
PT AMB TO BATHROOM. PO PAIN MEDS GIVEN.
--- NOTE | 2020-02-21 19:00 | NUR ---
PT ASSESSMENT COMPLETED AT THIS TIME, NO CHANGES NOTED FROM NURSE REPORT, PT IS AAOX4 SITTING IN BEDSIDE CHAIR WATCHING TV, PT ASKING ABOUT SUPPOSITORY FOR BM, PT STATES THAT SHE HAS NOT HAD BM YET, PT DENIES DISCOMFORT, DISTRESS. VSS WILL MONITOR FOR CHANGES
--- NOTE | 2020-02-21 21:00 | NUR ---
PT ADVISED THAT SHE HAS ONLY BEEN ABLE TO PASS TWO SMALL ROUND HARD PIECES OF STOOL, PT DENIES DISCMOFORT OR DISTRESS AT THIS TIME
--- NOTE | 2020-02-21 23:00 | NUR ---
PT REASSESSMENT COMPLETED AT THIS TIME, NO CHANGES NOTED FROM PREVIOUS EXAM, VSS
[2020-02-22] VITALS (12 sets, daily range): BP systolic 99–138; BP diastolic 50–64
--- NOTE | 2020-02-22 01:00 | NUR ---
PT RESTING IN BED WITH EYES CLOSED, RESP EVEN AND NON LABORED, VSS
--- NOTE | 2020-02-22 03:00 | NUR ---
PT REASSESSMENT COMPLETED AT THIS TIME, NO CHANGES NOTED FROM PREVIOUS EXAM, VSS
--- NOTE | 2020-02-22 05:00 | NUR ---
PT RESTING WITH EYES CLOSED RESP EVEN AND NONLABORED, VSS
--- NOTE | 2020-02-22 06:15 | NUR ---
PT ASSISTED UP TO BEDSIDE CHAIR, PT ADVISED THAT SHE DID NOT WANT A BATH, THAT SHE WANTED TO WAIT UNTIL SHE GOT HOME
[2020-02-22 06:43] LABS: HEMATOCRIT 27.6 % (36.0-48.0); LYMPHOCYTES 30.2 % (15-50); MCH 27.8 pg (26.0-34.0); MCHC 32.6 g/dL (31.0-37.0); MCV 85.2 fL (80.0-100.0); MEAN PLATELET VOLUME 9.7 fL (7.4-10.4); NEUTROPHILS 59.7 % (40-80); RBC 3.24 10x6/uL (4.00-5.40); RDW 15.6 % (11.5-14.5)
[2020-02-22 06:45] LABS: PLATELET COUNT 293 10x3/uL (130-400)
[2020-02-22 07:04] LABS: ALBUMIN 2.3 g/dL (3.4-5.0); ANION GAP 11.3 mmol/L (8-16); BILIRUBIN - TOTAL 0.39 mg/dL (0.2-1.3); CALCIUM 8.3 mg/dL (8.5-10.1); CARBON DIOXIDE 26.8 mmol/L (21.0-32.0); CREATININE - SERUM 0.9 mg/dL (0.6-1.3); PHOSPHOROUS 2.7 mg/dL (2.5-4.9); POTASSIUM - SERUM 4.1 mmol/L (3.5-5.1); PROTEIN - SERUM 5.7 g/dL (6.4-8.2)
--- NOTE | 2020-02-22 11:58 | NUR ---
AMB IN PARK WITH THIS NURSE WITH TELEMETRY.
--- NOTE | 2020-02-22 14:24 | NUR ---
PT DCD HOME WITH BY W/C. ALL DC INSTRUCTIONS REVIEWED AND PT VERB UNDERSTANDING OF MEDS AND MEDS NOT TO TAKE AND NEXT DOSE AND RX TO BE PICKED UP FROM [facility]. PT VERB UNDERSTANDING OF ALL DC INSTRUCTIONS.
--- NOTE | 2020-02-22 17:05 | MORECARE ---
CASE MANAGEMENT DISCHARGE SUMMARY PATIENT: HARPREET REESE UNIT: [id number] ADM DATE: 02/16/20 AGE: 74 : [birth year] SEX: F ROOM/BED: D[facility] AUTHOR: FAUSTINO,DOC PHYSICIAN: REFERRING PHYSICIAN: BROOKE BROWN MD DATE OF SERVICE: 02/22/20 Discharge Plan Patient Name: HARPREET REESE Facility: [facility]:[place] : 1945 Planned Disposition: Home Anticipated Discharge Date: 02/22/20 Discharge Date: 02/22/2020 Expected LOS: 6 Initial Reviewer: [email or web address] Initial Review Date: 02/16/2020 Generated: 02/22/20 6:04 pm Comments DCP- Discharge Planning Updated by [email or web address]: Elida Avendano on 02/22/20 4:[address] Patient Name: HARPREET REESE Admission Status: Elective Accout number: [id number] Admission Date: 02-16-2020 : 1945 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 CM educated patient on the CM role and verbal consent given by patient to complete assessment. Patient lives at home with family. Patient is independent. At discharge patient plans to return home and feels this is a safe discharge. CM discussed availability of home health, rehab services, and medical equipment. Patient will have family to transport home. Patient denied known discharge needs at this time. D/C IMM SIGNED 02/22/20 @ 1202. CM will continue to follow and will assist as needed with dc plans/needs. Aquatic Instructor: Elida Avendano DCPIA - Discharge Planning Initial Assessment Updated by [email or web address]: Elida Avendano on 02/22/20 5:01 pm * Is the patient Alert and Oriented? Yes * How many steps to enter\exit or inside your home? * PCP TIARA * Pharmacy [facility] * Preadmission Environment Home with Family * ADLs Independent * Equipment Walker * Other Equipment SC, CANE * List name and contact numbers for known caregivers / representatives who currently or will assist patient after discharge: CRISELDA REESE - [facility] - [phone] * Verbal permission to speak to the caregivers and representatives has been obtained from the patient. Yes * Community resources currently utilized None * Additional services required to return to the preadmission environment? No * Can the patient safely return to the preadmission environment? Yes * Has this patient been hospitalized within the prior 30 days at any hospital? No Coverage Notice Reviewer: [email or web address] Caroline Avendano Notice Issued Date-Time: 02/22/2020 12:02 Notice Type: IM Discharge Notice Notice Delivered To: Patient Relationship to Patient: Self Multiple Drum Sander Helper Name: Delivery Method: HAND - Hand Delivered Rhonda Days: Prior Verbal Notification: Recipient Understood Notice: Yes Recipient Signature: Yes Med Rec Note Co-signed by Attending: Coverage Notice Comment: Patient Name: HARPREET REESE Page [phone] at 1705 All edits/amendments must be made on the electronic document DICTATION DATE: 02/22/201703 GRAIN FARMWORKER: CARRIE 02/22/201703 RPT#: [id number] DC DATE:02/22/20 STATUS: DIS IN [facility] [address] [place] [address] END OF REPORT
--- NOTE | 2020-02-22 17:34 | MORECARE ---
CASE MANAGEMENT DISCHARGE SUMMARY PATIENT: HARPREET REESE UNIT: [id number] ADM DATE: 02/16/20 AGE: 74 : [birth year] SEX: F [facility]OM[facility]BED: [facility] AUTHOR: FAUSTINO,DOC PHYSICIAN: REFERRING PHYSICIAN: BROOKE BROWN MD DATE OF SERVICE: 02/22/20 Discharge Plan Patient Name: HARPREET REESE Facility: [facility]:[place] : 1945 Planned Disposition: Home Anticipated Discharge Date: 02/22/20 Discharge Date: 02/22/2020 Expected LOS: 6 Initial Reviewer: [email or web address] Initial Review Date: 02/16/2020 Generated: 02/22/20 6:33 pm Comments DCP- Discharge Planning Updated by [email or web address]: Elida Avendano on 02/22/20 4:[address] Patient Name: HARPREET REESE Admission Status: Elective Accout number: [id number] Admission Date: 02-16-2020 : 1945 Admission Diagnosis: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 CM educated patient on the CM role and verbal consent given by patient to complete assessment. Patient lives at home with family. Patient is independent. At discharge patient plans to return home and feels this is a safe discharge. CM discussed availability of home health, rehab services, and medical equipment. Patient will have family to transport home. Patient denied known discharge needs at this time. D/C IMM SIGNED 02/22/20 @ 1202. CM will continue to follow and will assist as needed with dc plans/needs. Communications Equipment Operator: Elida Avendano DCPIA - Discharge Planning Initial Assessment Updated by [email or web address]: Elida Avendano on 02/22/20 5:01 pm * Is the patient Alert and Oriented? Yes * How many steps to enter\exit or inside your home? * PCP TIARA * Pharmacy [facility] * Preadmission Environment Home with Family * ADLs Independent * Equipment Walker * Other Equipment SC, CANE * List name and contact numbers for known caregivers / representatives who currently or will assist patient after discharge: CRISELDA REESE - [facility] - [phone] * Verbal permission to speak to the caregivers and representatives has been obtained from the patient. Yes * Community resources currently utilized None * Additional services required to return to the preadmission environment? No * Can the patient safely return to the preadmission environment? Yes * Has this patient been hospitalized within the prior 30 days at any hospital? No Coverage Notice Reviewer: [id number] Caroline Avendano Notice Issued Date-Time: 02/22/2020 12:02 Notice Type: IM Discharge Notice Notice Delivered To: Patient Relationship to Patient: Self Director Oncology Name: Delivery Method: HAND - Hand Delivered Rhonda Days: Prior Verbal Notification: Recipient Understood Notice: Yes Recipient Signature: Yes Med Rec Note Co-signed by Attending: Coverage Notice Comment: Last DP export: 02/22/20 4:05 p Patient Name: HARPREET REESE Page [phone] at 1734 All edits/amendments must be made on the electronic document DICTATION DATE: 02/22/201732 JACQUARD LOOM CARD CHANGER: CARRIE 02/22/20 173 RPT#: [id number] DC DATE:02/22/20 STATUS: DIS IN [facility] [address] [place] [address] END OF REPORT
--- NOTE | 2020-02-23 08:06 | TEE ---
PATIENT:HARPREET REESE MEDICAL RECORD: [id number] LOCATION:[place] [address] AGE OF PATIENT: 74 ADMISSION DATE: 02/16/20 SEX: F REFERRING PHYSICIAN: INTERPRETING PHYSICIAN: JOYCELYN SAMUELS MD TRANSESOPHAGEAL ECHOCARDIOGRAM Date: 02/16/20 JOSI CHARGE Y INDICATIONS: CABG PREMEDICATIONS: PATIENT'S RESPONSE PROCEDURE DOPPLER MEASUREMENTS: LVIT LA 2.8 PA RA LVOT RVOT Asc. Ao AV Gradient Peak AV Mean AV Area MV Gradient Peak MV Mean MV Area INTERPRETATION: Doppler: 2-D: COLOR FLOW DOPPLER NORMAL SALINE STUDY: MISCELLANOUS: DIAGNOSIS: PLAN: Office System Analyst:3 Dr. Eddy Senior Chemist: Agustina PICHARDO COMMENTS: PATIENT OF RL DATE OF SERVICE: 02/17/2020 PROCEDURE: Transesophageal, preop shows normal LV wall motion, normal wall thickening, EF 25%. Aortic valve is tricuspid with good valve excursion. Left atrium appears normal. Mitral valve appears normal. Trace MR. Postoperatively, normal wall thickening, normal wall motion, EF 60%. Aortic valve is tricuspid with good valve excursion. Left atrium appears normal. Mitral valve appears normal. Trivial MR. Right-sided chamber is grossly normal. TRANSESOPHAGEAL ECHOCARDIOGRAM REPORT [id number] GILES REESE TRANSINT:[id number] Voice Confirmation ID: [id number] DOCUMENT ID: [id number] CC: [id number] DICTATION DATE: 02/17/20 1429 FISCAL ECONOMIST: 02/17/20 1452 DIS IN 02/22/20 [place] [id number] [place] [id number]
== END 2020-02-22 14:31 | disposition home or self-care (01) | DRG 236 ==
LOC: D.CVICU 02-16 05:30 → D.SDCHOLD 02-16 05:30 → D.CVICU 02-16 12:01
PROVIDERS: ADMIT Thoracic Surgery (Cardiothoracic Vascular Surgery); ATTEND Thoracic Surgery (Cardiothoracic Vascular Surgery)
PROC: 021109W Bypass Coronary Artery, Two Arteries from Aorta with Autologous Venous Tissue, Open Approach (ICD-10-PCS; 2020-02-16)
PROC: 06BQ4ZZ Excision of Left Saphenous Vein, Percutaneous Endoscopic Approach (ICD-10-PCS; 2020-02-16)
PROC: 5A1221Z Performance of Cardiac Output, Continuous (ICD-10-PCS; 2020-02-16)
PROC: 02100Z9 Bypass Coronary Artery, One Artery from Left Internal Mammary, Open Approach (ICD-10-PCS; principal; 2020-02-16 07:30)
DX: I25.110 Atherosclerotic heart disease of native coronary artery with unstable angina pectoris (principal); D62 Acute posthemorrhagic anemia; I10 Essential (primary) hypertension; E11.65 Type 2 diabetes mellitus with hyperglycemia; K21.9 Gastro-esophageal reflux disease without esophagitis; M26.609 Unspecified temporomandibular joint disorder, unspecified side; M19.90 Unspecified osteoarthritis, unspecified site; E03.9 Hypothyroidism, unspecified

== ENCOUNTER → 2020-02-13 07:53 | Outpatient (CLI) | payer MEDICARE ==
[2020-02-11 12:29] VITALS: BMI 24.4
== END | disposition home or self-care (01) ==
LOC: D.LAB 07:46
PROVIDERS: ATTEND Thoracic Surgery (Cardiothoracic Vascular Surgery)
DX: I25.10 Atherosclerotic heart disease of native coronary artery without angina pectoris (principal)

== ENCOUNTER → 2020-03-09 10:02 | Outpatient (CLI) | payer MEDICARE ==
[2020-02-17 11:14] VITALS: BMI 25.1
[~2020-03-09 10:02] MED LIST changes: +ASPIRIN EC81 M1 PO; +COLACE100 MG PO; +LOPRESSOR25 MG PO; +PERCOCET 5-3251 TAB PO
[2020-03-09 10:24] LABS: BASOPHILS 0.7 % (0-2); EOSINOPHILS 2.1 % (0-7); HEMATOCRIT 33.4 % (36.0-48.0); IMMATURE GRANULOCYTES 0.2 % (0-5); LYMPHOCYTES 24.6 % (15-50); MCH 25.7 pg (26.0-34.0); MCHC 29.9 g/dL (31.0-37.0); MCV 85.9 fL (80.0-100.0); MEAN PLATELET VOLUME 8.9 fL (7.4-10.4); MONOCYTES 8.2 % (2-11); NEUTROPHILS 64.2 % (40-80); RBC 3.89 10x6/uL (4.00-5.40); RDW 15.7 % (11.5-14.5); WBC 5.7 10x3/uL (4.8-10.8)
[2020-03-09 10:33] LABS: ANION GAP 11.7 mmol/L (8-16); CALCIUM 9.6 mg/dL (8.5-10.1); CARBON DIOXIDE 27.4 mmol/L (21.0-32.0); POTASSIUM - SERUM 4.1 mmol/L (3.5-5.1)
[2020-03-09 10:44] LABS: PLATELET COUNT 527 10x3/uL (130-400)
== END | disposition home or self-care (01) ==
LOC: D.RAD 10:02
PROVIDERS: ATTEND Thoracic Surgery (Cardiothoracic Vascular Surgery)
DX: Z95.1 Presence of aortocoronary bypass graft (principal)

== ENCOUNTER → 2020-04-06 10:49 | Outpatient (CLI) | payer MEDICARE ==
[2020-02-17 11:14] VITALS: BMI 25.1
== END | disposition home or self-care (01) ==
LOC: D.US 10:49
PROVIDERS: ATTEND Thoracic Surgery (Cardiothoracic Vascular Surgery)
DX: S80.11XA Contusion of right lower leg, initial encounter (principal); X58.XXXA Exposure to other specified factors, initial encounter